=== PATIENT | female | born 1945 | race Caucasian/White ===

== ENCOUNTER 2018-04-21 13:47 | Emergency (ER) | payer MEDICARE, BC ==
[~2018-04-21] VITALS: Ht 165.1 cm; Wt 48.5 kg
[~2018-04-21 13:47] MED LIST: OXYC-133 PO
--- NOTE | 2018-04-21 14:01 | NUR ---
PATIENT TO ED DT RIGHT HIP PAIN S/P TRIP AND FALL SINCE YESTERDAY. VSS
[2018-04-21] MEDS ORDERED: HYDROCODONE/APAP 5/325MG 1 EACH TABLET ONE (14:15)
[2018-04-21] MEDS ORDERED: HYDROCODONE/APAP 5/325MG 1 EACH TABLET PO ONE (14:30)
[2018-04-21] MEDS ORDERED: MORPHINE SULFATE INJ 4 MG/ML DISP.SYRIN ONE (14:42)
[2018-04-21] MEDS ORDERED: PROMETHAZINE HCL SYRUP 6.25 MG/5 ML UDC PO SCH (15:00)
[2018-04-21] MEDS ORDERED: MORPHINE SULFATE INJ 2 MG/ML DISP.SYRIN IM ONE (15:00)
--- NOTE | 2018-04-21 15:07 | NUR ---
Patient discharged to home in stable condition. Written and verbal after care instructions given. Patient verbalizes understanding of instruction.
[2018-04-21 15:09] VITALS: BP 124/80
== END 2018-04-21 15:09 | disposition home or self-care (01) ==
LOC: ER 13:53
DX: M25.551 Pain in right hip (principal); I34.1 Nonrheumatic mitral (valve) prolapse; M16.11 Unilateral primary osteoarthritis, right hip; Z90.710 Acquired absence of both cervix and uterus; Z96.642 Presence of left artificial hip joint
CPT/HCPCS: 73502; 73552; J2270; Q0169

== ENCOUNTER 2018-07-31 20:29 | Emergency (ER) | payer MEDICARE, BC ==
[~2018-07-31] VITALS: Ht 165.1 cm; Wt 48.5 kg
--- NOTE | 2018-07-31 21:40 | NUR ---
BIB SELF COMPLAINING OF RT HIP PAIN. PT AA/OX 4. "I FELL OFF MY BED AND HIT MY FACE AND MY HIP." NO LOC. NO TRAUMA NOTED TO FACE AND HIP. NO DEFORMITY TO RT HIP AND LEG. NO SHORTENING OR ROTATION. PEDAL PULSES PRESENT. AMBULATED TO HOSPITAL BED WITH WHEELED WALKER. NO S/S SOB. SKIN PINK, WARM, DRY. NAD. VSS. WILL CONTINUE TO MONITOR.
[2018-07-31] MEDS ORDERED: oxyCODONE/APAP (5/325 MG) 1 UDTAB TABLET ONE (23:21)
--- NOTE | 2018-07-31 23:24 | NUR ---
Patient discharged to home in stable condition. Written and verbal after care instructions given. Patient verbalizes understanding of instruction. AMBULATED WITH STEADY GAIT. 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
[2018-07-31 23:25] VITALS: BP 112/90
[2018-07-31] MEDS ORDERED: oxyCODONE/APAP (5/325 MG) 1 UDTAB TABLET PO ONE (23:30)
== END 2018-07-31 23:25 | disposition home or self-care (01) ==
LOC: ER 20:33
DX: S70.01XA Contusion of right hip, initial encounter (principal); I34.1 Nonrheumatic mitral (valve) prolapse; Z98.890 Other specified postprocedural states; W06.XXXA Fall from bed, initial encounter; Y93.89 Activity, other specified; Y92.89 Other specified places as the place of occurrence of the external cause; Y99.8 Other external cause status
CPT/HCPCS: 73502; 99284; A4606; Z7610